=== PATIENT | female | born 1940 | race Caucasian/White ===

== ENCOUNTER 2016-05-23 13:43 | Outpatient (CLI) ==
[2016-02-14 15:43] VITALS: BMI 34.4
--- NOTE | 2016-05-24 07:21 | MAMMO ---
EXAM: Digital screening mammogram HISTORY: Screening mammogram COMPARISON: Mammogram 04/27/2015 and 04/20/2014 FINDINGS: Bilateral CC and MLO views of the breasts were performed digitally and demonstrate scatte red fibroglandular breast density (25 - 50%). There is a new 0.6 cm in diameter asymmetric nodule in the most posterior portion of the right MLO view. This is not identified on the right CC view. Thi s was not seen on prior evaluation although today's exam appears to include more posterior soft tiss ue than on prior studies. The left breast is unremarkable. IMPRESSION: Asymmetric nodular density in the most posterior part of the right MLO view. RECOMMENDATION: Diagnostic right breast mammogram and ultrasound BIRADS category 0: Needs further evaluation
== END 2016-05-23 13:44 | disposition home or self-care (01) ==
LOC: RAD 13:43
PROVIDERS: ATTEND Internal Medicine
DX: Z12.31 Encounter for screening mammogram for malignant neoplasm of breast (principal)

== ENCOUNTER 2016-06-02 09:02 | Outpatient (CLI) ==
[2016-02-14 15:43] VITALS: BMI 34.4
--- NOTE | 2016-06-02 09:52 | MAMMO ---
EXAM: Right digital diagnostic mammogram. History: Right breast nodule. Comparison: Bilateral mammogram 05/23/2016 Findings: Right breast density is fatty. Additional views of the right breast confirm the presence of a small round nodule in the right axillary tail. There are no suspicious microcalcifications. Impression: Indeterminate small right axillary breast nodule. Recommend further evaluation with nate cazares. BIRADS 0
--- NOTE | 2016-06-02 10:06 | US ---
EXAM: Right breast ultrasound. History: Right breast nodule. Comparison: Right digital diagnostic mammogram 06/02/2016 Technique: Multiple sonographic images through the right breast and right axilla were obtained. [place] duplex Doppler was used to interrogate vascular flow. Findings: Benign 1.0 cm x 0.4 cm x 1.1 cm lymph node within the right axilla demonstrating fatty hi lum. This probably correlates with the mammographic abnormality. No suspicious masses or fluid col lections. Impression: Benign right axillary lymph node. Recommend return to routine screening mammography gladis villeda. BIRADS 2
== END 2016-06-02 09:03 | disposition home or self-care (01) ==
LOC: RAD 09:02
PROVIDERS: ATTEND Internal Medicine
DX: R92.8 Other abnormal and inconclusive findings on diagnostic imaging of breast (principal); N63 Unspecified lump in breast

== ENCOUNTER 2016-09-05 08:37 | Day surgery (SDC) ==
[2016-02-14 15:43] VITALS: BMI 34.4
[2016-09-05] MEDS ORDERED: LIDOCAINE 1% 20 ML MDV ID ONE (08:55)
[2016-09-05] MEDS ORDERED: LIDOCAINE 1% 20 ML MDV ONE (08:55)
[2016-09-05] MEDS ORDERED: DIPRIVAN 20 ML VIAL IVP ONE (10:17)
[2016-09-05] MEDS ORDERED: VERSED ONE (10:17)
[2016-09-05 11:14] VITALS: TEMP 98
[2016-09-05 11:27] VITALS: BP 140/74
--- NOTE | 2016-09-06 11:24 | OP ---
INDICATIONS FOR PROCEDURE: 75-year-old female presents for colonoscopy. She has a past history of adenomatous polyps. Incidentally has some constipation. MEDICATIONS: SEE ANESTHESIA NOTES. PROCEDURE: COLONOSCOPY. REPORT: The risks, benefits, alternatives and limitations were discussed in detail with the patient. Informed consent was obtained. After adequate sedation was achieved, a digital rectal exam revealed good tone, no masses. The colonoscope was introduced into the rectum and advanced under direct visual guidance to the cecum. The cecum was identified by the appendiceal orifice and IC valve. I then slowly withdrew the scope in circumferential manner examining the mucosa quite carefully. I looked on the proximal and distal side of folds and flexures as best as possible. The colonic mucosa is unremarkable its entire length other than willett diverticulosis. No other abnormalities were noted including on retroflex view of the anal canal. The prep was good. The withdrawal time was 16 minutes and 28 seconds. The patient tolerated the procedure well with stable vital signs and pulse oximetry throughout. IMPRESSION: 1. Pandiverticulosis. RECOMMENDATIONS: 1. High fiber diet. 2. Office visit as needed. 3. Future colon exams on an as needed basis. CC: DR. SHAILESH DE LUNA
== END 2016-09-05 11:36 | disposition home or self-care (01) ==
LOC: SURG 08:37
PROVIDERS: ATTEND Internal Medicine Gastroenterology
DX: Z09 Encounter for follow-up examination after completed treatment for conditions other than malignant neoplasm (principal); Z86.010 Personal history of colon polyps; K57.30 Diverticulosis of large intestine without perforation or abscess without bleeding; K59.00 Constipation, unspecified
CPT/HCPCS: 00810; G0105

== ENCOUNTER 2017-04-29 09:55 | Emergency (ER) ==
[2017-04-29 09:59] VITALS: BP 160/71; TEMP 98.5; BMI 36.6
[2017-04-29 10:17] LABS: BILIRUBIN,URINE 3+ (NEGATIVE); KETONES,URINE 1+ (NEGATIVE); LEUKOCYTE ESTERASE ,URINE 3+ (NEGATIVE); NITRITE,URINE Negative (NEGATIVE); PH,URINE 5.5 (5-9); PROTEIN,URINE 3+ (NEGATIVE); URINE, BLOOD 3+ (NEGATIVE)
[2017-04-29 10:24] LABS: ADD URINE MICROSCOPIC YES
[2017-04-29 10:36] LABS: BACTERIA,URINE 1+ (NOT PRESENT)
--- NOTE | 2017-04-29 10:59 | ED.PDOC ---
General ED Provider: Dr. MURPHY GUERRA Chief Complaint: Urinary Problem Stated Complaint: Pateint states she started having buring on urination yesterday worse today. Also noted some blood with some clots. Denies any fever. Time Seen by Physician: 10:57 Mode of Arrival: Walk-In Information Source: Patient Primary Care Provider: GAYATRI CASH Nursing and Triage Documentation Reviewed and Agree: Yes Review of Systems - Review Of Systems Constitutional: Reports: No symptoms Eyes: Reports: No symptoms Ears, Nose, Mouth, Throat: Reports: No symptoms Respiratory: Reports: No symptoms Cardiac: Reports: No symptoms GI: Reports: No symptoms : Reports: Burning, Dysuria, Hematuria Musculoskeletal: Reports: Back pain Skin: Reports: No symptoms Neurological: Reports: No symptoms Endocrine: Reports: No symptoms Hematologic/Lymphatic: Reports: No symptoms All Other Systems: Reviewed and Negative Past Medical History - Past Medical History Endocrine: Reports: None Cardiovascular: Reports: CAD, Hypertension Respiratory: Reports: None Hematological: Reports: None Gastrointestinal: Reports: GERD (old record), Diverticulitis, Other (IBS) Genitourinary: Reports: None Neuro/Psych: Reports: Anxiety (old record) Musculoskeletal: Reports: None Cancer: Reports: None Last Menstrual Period: n/a - Surgical History General Surgical History: Reports: Cholecystectomy, Tonsillectomy - Family History Family History: Reports: Other (noone else ill), Unknown - Social History Smoking Status: Never smoker Hx Substance Use: No Alcohol Screening: None Physical Exam - Physical Exam Appearance: Ill-appearing Ill-appearing: Mild Pain Distress: Moderate Neck: Supple Respiratory: Airway patent, Breath sounds clear, Breath sounds equal, Respirations nonlabored Cardiovascular: RRR, Pulses normal, No rub, No murmur GI/: Soft, Tender (mild CVA tenderness on the right ) Musculoskeletal: Normal strength Skin: Warm, Dry, Normal color Neurological: Sensation intact, Motor intact, Reflexes intact, Cranial nerves intact, Alert, Oriented Psychiatric: Anxious Critical Care Note - Critical Care Note Total Time (mins): 0 Course - Course Orders, Labs, Meds: Lab Review 04/29/17 10:10 Urine Color Red Urine Clarity Cloudy Urine pH 5.5 Ur Specific [place] 1.020 Urine Protein 3+ Urine Glucose (UA) Negative Urine Ketones 1+ Urine Blood 3+ Urine Nitrite Negative Urine Bilirubin 3+ Urine Urobilinogen 2.0 Ur Leukocyte Esterase 3+ Urine Microscopic RBC Tntc Urine Microscopic WBC 2-5 Ur Squamous Epith Cells 2-5 Urine Bacteria 1+ Orders Category Date Time Status UA [URINALYSIS C & S IF INDICATED] Stat LAB 04/29/17 10:10 Completed URINE CULTURE Stat LAB 04/29/17 10:10 Received Vital Signs: Temp Pulse Resp BP Pulse Ox 04/29/17 09:57 98.5 F 69 20 160/71 H 97 Departure - Departure Time of Disposition: 10:58 Disposition: HOME SELF-CARE Discharge Problem: Urinary tract infectious disease Instructions: Urinary Tract Infection in Women (ED) Condition: Stable Pt referred to PMD for follow-up: Yes Additional Instructions: Push fluids Take medications as prescribed Follow up with PCP in 3 days Prescriptions: Levofloxacin [Levaquin] 500 mg PO DAILY #7 tablet Phenazopyridine HCl [Pyridium] 100 mg PO TID PRN #10 tablet PRN Reason: Urinary Burning. Allergies/Adverse Reactions: Allergies morphine Adverse Reaction (Verified 04/29/17 09:59) Home Medications: Ambulatory Orders Aspirin [Aspirin EC] 81 mg PO DAILYWM 05/17/13 Bisoprolol Fumarate [Zebeta] 2.5 mg PO BEDTIME 05/17/13 Dicyclomine HCl [Bentyl] 10 mg PO QID PRN 05/17/13 Digoxin 125 mcg PO BEDTIME 05/17/13 Lisinopril [Zestril] 10 mg PO DAILY 05/17/13 Pantoprazole Sodium 40 mg PO QDAC 05/17/13 Ferrous Sulfate 65 mg PO BID 02/14/16 Calcium Carbonate [Calcium] 600 mg PO BID 09/05/16 Cholecalciferol (Vitamin D3) [Vitamin D3] 1,000 unit PO DAILY 09/05/16 Hydrocodone/Acetaminophen [[place] 10-325 Tablet] 1 tab PO TID PRN 09/05/16 Multivitamin 1 cap PO DAILY 09/05/16 Raloxifene HCl [Evista] 60 mg PO DAILY 09/05/16 Tizanidine HCl 4 mg PO BID PRN 09/05/16 Levofloxacin [Levaquin] 500 mg PO DAILY #7 tablet 04/29/17 Phenazopyridine HCl [Pyridium] 100 mg PO TID PRN #10 tablet 04/29/17 Disposition Discussed With: Patient, Family
== END 2017-04-29 11:03 | disposition home or self-care (01) ==
LOC: ED 09:55
DX: N39.0 Urinary tract infection, site not specified (principal)
CPT/HCPCS: 81001; 87086; 99283

== ENCOUNTER 2017-05-22 10:32 | Inpatient (IN) ==
[2017-05-22] MEDS ORDERED: TYLENOL PO PRN (11:41)
[2017-05-22] MEDS ORDERED: ATROPINE SULFATE PFS IVP PRN (11:41)
[2017-05-22] MEDS ORDERED: NITROSTAT SL PRN (11:41)
[2017-05-22] MEDS ORDERED: MORPHINE 4 MG/ML VIAL IVP PRN (11:41)
[2017-05-22] MEDS ORDERED: VISTARIL INJ IM PRN (11:41)
[2017-05-22] MEDS ORDERED: BENTYL PO PRN (11:50)
[2017-05-22] MEDS ORDERED: NORCO 10-325 PO PRN (11:50)
[2017-05-22] MEDS ORDERED: ZANAFLEX PO PRN (11:50)
[2017-05-22] MEDS ORDERED: TUSSIONEX PO PRN (11:53)
[2017-05-22] MEDS: XOPENEX 1.25 MG NEB SCH ×3 (12:41→23:22)
[2017-05-22] MEDS: DEXTROSE 5%-1/2NS IV SOLUTION 1,000 ML IV SCH (14:34)
[2017-05-22] MEDS: ROCEPHIN 1 GM in SODIUM CHLORIDE 50 ML IV SCH (14:34)
[2017-05-22] MEDS: SOLU-MEDROL 125 MG IVP SCH ×2 (14:35→20:27)
--- NOTE | 2017-05-22 16:15 | DI ---
EXAM: CHEST FRONTAL AND LATERAL VIEWS HISTORY: Acute bronchitis. COMPARISON: 05/17/2013 FINDINGS: Heart size remains within normal limits. Moderate atherosclerotic disease. Mild hyperinf lation. There are scattered calcifications suggesting old granulomatous disease. No acute infiltrate s are seen. No vascular congestion. There is no consolidation, visible pleural fluid or pneumothora x. Bones reveal no acute fracture. IMPRESSION: No acute cardiopulmonary process.
[2017-05-22] MEDS: FERROUS SULFATE PO SCH (20:26)
[2017-05-22] MEDS: CALCIUM 500 + VIT D 200 MG TABLET PO SCH (20:26)
[2017-05-22] MEDS: LANOXIN PO SCH (20:26)
[2017-05-22] MEDS: ZEBETA PO SCH (20:28)
[2017-05-22] MEDS ORDERED: FERROUS SULFATE 65 MG PO SCH (21:00)
[2017-05-22] MEDS ORDERED: NON-FORMULARY MEDICATION (Calcium Carbonate [Calcium] 600 MG) PO SCH (21:00)
[2017-05-23] MEDS: XOPENEX 1.25 MG NEB SCH (04:04)
[2017-05-23] MEDS: DEXTROSE 5%-1/2NS IV SOLUTION 1,000 ML IV SCH (05:19)
[2017-05-23] MEDS: SOLU-MEDROL 125 MG IVP SCH ×3 (05:36→20:50)
[2017-05-23] MEDS: PROTONIX PO SCH (05:36)
[2017-05-23] MEDS ORDERED: ASPIRIN EC PO SCH (08:00)
[2017-05-23] MEDS: ZESTRIL PO SCH (08:23)
[2017-05-23] MEDS: MULTIVITAMIN TABLET PO SCH (08:23)
[2017-05-23] MEDS: ROCEPHIN 1 GM in SODIUM CHLORIDE 50 ML IV SCH (08:23)
[2017-05-23] MEDS: CALCIUM 500 + VIT D 200 MG TABLET PO SCH ×2 (08:23→20:51)
[2017-05-23] MEDS: ASPIRIN EC PO SCH (08:23)
[2017-05-23] MEDS: VITAMIN D PO SCH (08:23)
[2017-05-23] MEDS: FERROUS SULFATE PO SCH ×2 (08:24→20:51)
[2017-05-23] MEDS: RALOXIFENE HCL 60 MG PO SCH (08:24)
[2017-05-23] MEDS ORDERED: NON-FORMULARY MEDICATION (Multivitamin 1 CAP) PO SCH (09:00)
[2017-05-23] MEDS: MICRO-K CAP PO SCH (09:23)
[2017-05-23] MEDS: PROAIR HFA IH SCH ×2 (09:23→20:49)
--- NOTE | 2017-05-23 10:01 | PCM.PROG ---
Attending Provider: ATTENDING PROVIDER: Dr. GAYATRI CASH DATE OF SERVICE: 05/23/17 SUBJECTIVE: This 76 year old WHITE/ F was hospitalized 05/22/17. The patient is hospitalized with acute bronchitis, dehydration and pleuritic pain. The patient's condition has improved. She is feeling a lot better, coughing less. No CHF symptoms. REVIEW OF SYSTEMS: CONSTITUTIONAL: Weakness. No night sweats. No fever or chills. HEENT: Eyes: No visual changes. No eye pain. No eye discharge. ENT: No runny nose. No epistaxis. No sinus pain. No odynophagia. No congestion. RESPIRATORY: No cough, no congestion. No hemoptysis. No shortness of breath. CARDIOVASCULAR: No angina symptoms. No CHF symptoms. No atypical chest pain for CAD. No palpitations. No orthopnea.. GASTROINTESTINAL: No abdominal pain. No nausea or vomiting. No diarrhea or constipation. No hematemesis. No hematochezia. GENITOURINARY: No urgency. No frequency. No dysuria. No hematuria. No obstructive symptoms. No discharge. No pain. No significant abnormal bleeding. MUSCULOSKELETAL: No musculoskeletal pain; no joint swelling. NEUROLOGICAL: Awake, alert, oriented to time, place and person. No headache. No neck pain. No syncope. No seizures. No dizziness. PSYCHIATRIC: Not anxious. No depression. No suicidal thoughts. No homicidal thoughts. SKIN: No rash. No lesions. No wounds. ENDOCRINE: No unexplained weight loss. No weight gain. HEMATOLOGIC/LYMPHATIC: No anemia. No purpura. No petechiae. No prolonged or excessive bleeding. No palpable lymph nodes. PHYSICAL EXAMINATION: GENERAL: The patient is awake, alert and oriented, lying/sitting in bed in no distress. VITAL SIGNS: Temperature 98 F, Pulse 68, Respiratory Rate 16, BP 112/60, Pulse Ox 96% HEENT: Head normocephalic, atraumatic. Eyes: Extraocular muscles are intact. Pupils are equal, round and reactive to light and accommodation. Ears: No lesions. Nose appeared normal. Throat: No exudate or erythema. NECK: Supple. No JVD, no carotid bruit. No lymphadenopathy or thyromegaly. LUNGS: Decreased breath sounds. Clear to auscultation. Percussion note normal. Chest symmetrical. HEART: S1, S2, no S3. No murmurs. No cyanosis or clubbing. No ascites. Pulses: Dorsalis pedis and posterior tibial pulses +1 to +2 both sides. ABDOMEN: Soft. Non-tender. Bowel sounds active. No CVA tenderness. No mass felt. EXTREMITIES: No edema. Full range of motion of all extremities, equal. NEUROLOGIC: No focal deficit. Cranial nerves II through XII are grossly intact. No headache, no double vision or headache. SKIN: Not dry. Intact. Turgor-normal. LYMPHATIC: No palpable lymph nodes/no lymphedema. MUSCULOSKELETAL: Normal joints with no swelling. Muscle tone is normal. LAB REVIEW: 05/23/17 04:30 05/23/17 04:30 05/23/17 04:30: Sodium 140, Potassium 3.3 L, Chloride 108 H, Carbon Dioxide 21 L , Anion Gap 14.3, BUN 21 H, Creatinine 0.92, Estimated GFR (MDRD) 59.00, BUN/ Creatinine Ratio 22.82, Glucose 205 H D, Calcium 8.8, Total Bilirubin 0.3, AST 17, ALT 14, Alkaline Phosphatase 59, Total Protein 7.3, Albumin 3.3 L, Globulin 4.0, Albumin/Globulin Ratio 0.83 05/23/17 04:30: WBC 17.57 H, RBC 4.60, Hgb 12.5, Hct 39.1, MCV 85.0, MCH 27.2, MCHC 32.0, RDW Coeff of Rut 15.1 H, Plt Count 263, Immature Gran % (Auto) 1.1, Neut % (Auto) 78.3, Lymph % (Auto) 18.5, [place] % (Auto) 1.9, Eos % (Auto) 0.0, Baso % (Auto) 0.2, Immature Gran # (Auto) 0.2, Neut # 13.8 H, Lymph # 3.3, [place] # 0.3 L, Eos # 0.0, Baso # 0.0 05/22/17 19:50: Total Creatine Kinase 55, Troponin I 0.0160 05/22/17 12:00: Sodium 140, Potassium 4.0, Chloride 107, Carbon Dioxide 27, Anion Gap 10.0, BUN 20 H, Creatinine 0.85, Estimated GFR (MDRD) 65.00, BUN/ Creatinine Ratio 23.52, Glucose 112, Calcium 8.7, Total Bilirubin 0.4, AST 19, ALT 18, Alkaline Phosphatase 56, Total Creatine Kinase 55, Troponin I 0.0150, Total Protein 7.2, Albumin 3.3 L, Globulin 3.9, Albumin/Globulin Ratio 0.85, Digoxin < 0.30 L 05/22/17 11:50: Urine Color Yellow, Urine Clarity Clear, Urine pH 5.5, Ur Specific [place] 1.015, Urine Protein Negative, Urine Glucose (UA) Negative, Urine Ketones Negative, Urine Blood Negative, Urine Nitrite Negative, Urine Bilirubin Negative, Urine Urobilinogen 0.2, Ur Leukocyte Esterase 1+, Urine Microscopic WBC 5-10, Ur Squamous Epith Cells 10-20, Urine Bacteria 1+ 05/22/17 11:50: Influenza A (Rapid) Negative by naat, Influenza B (Rapid) Negative by naat ASSESSMENT: Please see below. 1. ACUTE PNEUMONITIS/BRONCHITIS/PLEURITIC PAIN, CONDITION IMPROVING WITH NEBS TREATMENT, WHICH IS MAKING HER SICK PLAN: 1. Continue steroids and antibiotics 2. D/C Iv fluids 3. D/C Xopenex as she doesn't tolerate it well 4. ProAir HFA two puffs two to three times a day 5. K-Tab 10 mEq daily 6. D/C breathing treatment Plan and coordination of the patient's care discussed in the presence of Nut Picker and nurse. CONDITION: Stable SCRIBED BY: ZHANG OLEARY Custom [employer] Maker scribed while in presence of service performed by Dr. GAYATRI CASH on 05/23/17 ([id number])
[2017-05-23] MEDS: ZEBETA PO SCH (20:50)
[2017-05-23] MEDS: LANOXIN PO SCH (20:51)
[2017-05-24] MEDS: PROTONIX PO SCH (05:41)
[2017-05-24] MEDS: SOLU-MEDROL 125 MG IVP SCH (05:41)
[2017-05-24 05:44] VITALS: BP 103/58; TEMP 97.6
[2017-05-24] MEDS: PROAIR HFA IH SCH (08:33)
[2017-05-24] MEDS: FERROUS SULFATE PO SCH (08:34)
[2017-05-24] MEDS: ASPIRIN EC PO SCH (08:34)
[2017-05-24] MEDS: MICRO-K CAP PO SCH (08:34)
[2017-05-24] MEDS: CALCIUM 500 + VIT D 200 MG TABLET PO SCH (08:34)
[2017-05-24] MEDS: VITAMIN D PO SCH (08:34)
[2017-05-24] MEDS: MULTIVITAMIN TABLET PO SCH (08:34)
[2017-05-24] MEDS: ZESTRIL PO SCH (08:34)
[2017-05-24] MEDS: ROCEPHIN 1 GM in SODIUM CHLORIDE 50 ML IV SCH (08:35)
[2017-05-24] MEDS: DEXTROSE 5%-1/2NS IV SOLUTION 1,000 ML IV SCH ×2 (08:35→09:35)
[2017-05-24] MEDS: RALOXIFENE HCL 60 MG PO SCH (08:36)
--- NOTE | 2017-05-24 10:13 | PCM.PROG ---
Attending Provider: ATTENDING PROVIDER: Dr. GAYATRI MARIN This patient is seen with Suzan Pinedo, Nurse Practitioner. DATE OF SERVICE: 05/24/17 SUBJECTIVE: This 76 year old WHITE/ F was hospitalized 05/22/17. The patient is lying in bed, alert. She is ready to go home. The patient is feeling much better. REVIEW OF SYSTEMS: CONSTITUTIONAL: No night sweats. No fatigue, malaise, lethargy. No fever or chills. HEENT: Eyes: No visual changes. No eye pain. No eye discharge. ENT: No runny nose. No epistaxis. No sinus pain. No odynophagia. No congestion. RESPIRATORY: Cough and congestion. No hemoptysis. No shortness of breath. CARDIOVASCULAR: No angina symptoms. No CHF symptoms. No atypical chest pain for CAD. No palpitations. No orthopnea.. GASTROINTESTINAL: No abdominal pain. No nausea or vomiting. No diarrhea or constipation. No hematemesis. No hematochezia. GENITOURINARY: No urgency. No frequency. No dysuria. No hematuria. No obstructive symptoms. No discharge. No pain. No significant abnormal bleeding. MUSCULOSKELETAL: No musculoskeletal pain; no joint swelling. NEUROLOGICAL: Awake, alert, oriented to time, place and person. No headache. No neck pain. No syncope. No seizures. No dizziness. PSYCHIATRIC: Not anxious. No depression. No suicidal thoughts. No homicidal thoughts. SKIN: No rash. No lesions. No wounds. ENDOCRINE: No unexplained weight loss. No weight gain. HEMATOLOGIC/LYMPHATIC: No anemia. No purpura. No petechiae. No prolonged or excessive bleeding. No palpable lymph nodes. PHYSICAL EXAMINATION: GENERAL: The patient is awake, alert and oriented, lying in bed in no distress. VITAL SIGNS: Temperature 97.6 F, Pulse 81, Respiratory Rate 20, BP 103/58, Pulse Ox 94% HEENT: Head normocephalic, atraumatic. Eyes: Extraocular muscles are intact. Pupils are equal, round and reactive to light and accommodation. Ears: No lesions. Nose appeared normal. Throat: No exudate or erythema. NECK: Supple. No JVD, no carotid bruit. No lymphadenopathy or thyromegaly. LUNGS: Diminished breath sounds bilaterally. Percussion note normal. Chest symmetrical. HEART: S1, S2, no S3. No murmurs. No cyanosis or clubbing. No ascites. Pulses: Dorsalis pedis and posterior tibial pulses +1 to +2 both sides. ABDOMEN: Soft. Non-tender. Bowel sounds active. No CVA tenderness. No mass felt. EXTREMITIES: No edema. Full range of motion of all extremities, equal. NEUROLOGIC: No focal deficit. Cranial nerves II through XII are grossly intact. No headache, no double vision or headache. SKIN: Not dry. Intact. Turgor-normal. LYMPHATIC: No palpable lymph nodes/no lymphedema. MUSCULOSKELETAL: Normal joints with no swelling. Muscle tone is normal. LAB REVIEW: 05/24/17 05:00 05/24/17 05:00 05/24/17 05:00: Sodium 143, Potassium 3.9, Chloride 112 H, Carbon Dioxide 23, Anion Gap 11.9, BUN 22 H, Creatinine 0.92, Estimated GFR (MDRD) 59.00, BUN/ Creatinine Ratio 23.91, Glucose 145 H, Calcium 8.5, Total Bilirubin < 0.3, AST 23, ALT 16, Alkaline Phosphatase 48 L, Total Protein 6.3, Albumin 2.9 L, Globulin 3.4, Albumin/Globulin Ratio 0.85 05/24/17 05:00: WBC 24.51 H D, RBC 4.35, Hgb 12.1, Hct 37.1, MCV 85.3, MCH 27.8 , MCHC 32.6, RDW Coeff of Rut 15.5 H, Plt Count 259, Immature Gran % (Auto) 1.1 , Neut % (Auto) 85.2, Lymph % (Auto) 10.5, [place] % (Auto) 3.1, Eos % (Auto) 0.0, Baso % (Auto) 0.1, Immature Gran # (Auto) 0.3, Neut # 20.9 H, Lymph # 2.6, [place] # 0.8, Eos # 0.0, Baso # 0.0 ASSESSMENT: 1. ACUTE PNEUMONITIS/BRONCHITIS/PLEURITIC PAIN, CONDITION IMPROVING WITH NEBS TREATMENT, WHICH IS MAKING HER SICK PLAN: 1. Discharge home 2. Lu already has outpatient prescriptions 500 b.i.d. times 10 days. 3. Prednisone 10 mg b.i.d. times five days 4. Sebastian Clark one teaspoon p.r.n. Plan and coordination of the patient's care discussed in the presence of Estate Planning Counselor and nurse. CONDITION: Stable SCRIBED BY: ZHANG OLEARY Warp Preparer scribed while in presence of service performed by Dr. Marin/Suzan Pinedo APRN on 05/24/17 ([id number])
--- NOTE | 2017-05-24 10:24 | CM.DICTOOL ---
ADMISSION: 05/22/17 10:32 DISCHARGE: 05/24/17 DATE OF SERVICE: 05/24/17 FINAL DIAGNOSIS ACUTE BRONCHITIS DEHYDRATION HYPERTENSION GERD DYSLIPIDEMIA HEART MURMUR CARDIAC TACHYARRHYTHMIA OA - KNEES/HIPS LUMBAR RADICULOPATHY HEMORRHOIDS GENERALIZED ANXIETY DISORDER COLON/ENDO (DR. OKEEFE, 2012) MAMMOGRAM, 01/23 TONSILLECTOMY CHOLECYSTECTOMY, 1998 RIGHT ULNAR FRACTURE-REPAIR (DR. HOLDEN, 2013) NONSMOKER LAST VITALS Temp Pulse Resp BP Pulse Ox 97.6 F 81 20 103/58 L 94 L 05/24/17 05:43 05/24/17 05:43 05/24/17 05:43 05/24/17 05:43 05/24/17 05:43 ACTIVE HOME MEDICATIONS Acetaminophen/Hydrocodone Bitart ([place] 10-325) 1 tab PO TID PRN PRN Reason: pain Last Admin: 05/22/17 23:28 Dose: 1 tab Aspirin (Aspirin Ec) 81 mg PO DAILYWM [facility] Last Admin: 05/24/17 08:34 Dose: 81 mg Bisoprolol Fumarate (Zebeta) 2.5 mg PO BEDTIME [facility] Last Admin: 05/23/17 20:50 Dose: 2.5 mg Calcium/Vitamin D (Calcium 500 + Vit D 200 Mg Tablet) 1 each PO BID [facility] Last Admin: 05/24/17 08:34 Dose: 1 each Cholecalciferol (Vitamin D) 1,000 unit PO DAILY [facility] Last Admin: 05/24/17 08:34 Dose: 1,000 unit Dicyclomine HCl (Bentyl) 10 mg PO QID PRN PRN Reason: pain Digoxin (Lanoxin) 125 mcg PO BEDTIME [facility] Last Admin: 05/23/17 20:51 Dose: 125 mcg Ferrous Sulfate (Ferrous Sulfate) 324 mg PO BID [facility] Last Admin: 05/24/17 08:34 Dose: 324 mg Lisinopril (Zestril) 10 mg PO DAILY [facility] Last Admin: 05/24/17 08:34 Dose: 10 mg Multivitamins (Multivitamin Tablet) 1 tab PO DAILY [facility] Last Admin: 05/24/17 08:34 Dose: 1 tab Raloxifene Hcl [Evista] 60 mg PO DAILY [facility] Last Admin: 05/24/17 08:36 Dose: Not Given Pantoprazole Sodium (Protonix) 40 mg PO QDAC [facility] Last Admin: 05/24/17 05:41 Dose: 40 mg Tizanidine HCl (Zanaflex) 4 mg PO BID PRN PRN Reason: pain Last Admin: 05/22/17 23:33 Dose: 4 mg ALLERGIES morphine Adverse Reaction (Verified 04/29/17 09:59) NEW PRESCRIPTIONS: YOU SHOULD FILL THE PRESCRIPTIONS GIVEN JUST PRIOR TO YOUR HOSPITALIZATION AND TAKE DIRECTED: KEFLEX PREDNISONE TESSALON PERLES SMOKING: NONSMOKER DISEASE SPECIFIC EDUCATION: BRONCHITIS DEHYDRATION HOME MEDICATIONS NEW PRESCRIPTIONS FOLLOW UP EFFECTS OF ALF STEROID USE LAB REVIEW: 05/24/17 05:00 05/24/17 05:00 05/24/17 05:00: Sodium 143, Potassium 3.9, Chloride 112 H, Carbon Dioxide 23, Anion Gap 11.9, BUN 22 H, Creatinine 0.92, Estimated GFR (MDRD) 59.00, BUN/ Creatinine Ratio 23.91, Glucose 145 H, Calcium 8.5, Total Bilirubin < 0.3, AST 23, ALT 16, Alkaline Phosphatase 48 L, Total Protein 6.3, Albumin 2.9 L, Globulin 3.4, Albumin/Globulin Ratio 0.85 05/24/17 05:00: WBC 24.51 H D, RBC 4.35, Hgb 12.1, Hct 37.1, MCV 85.3, MCH 27.8 , MCHC 32.6, RDW Coeff of Rut 15.5 H, Plt Count 259, Immature Gran % (Auto) 1.1 , Neut % (Auto) 85.2, Lymph % (Auto) 10.5, [place] % (Auto) 3.1, Eos % (Auto) 0.0, Baso % (Auto) 0.1, Immature Gran # (Auto) 0.3, Neut # 20.9 H, Lymph # 2.6, [place] # 0.8, Eos # 0.0, Baso # 0.0 PLAN: DISCHARGE HOME TODAY RETURN TO SEE DR. CASH IN HIS OFFICE ON 05/31/17 AT 10:45 A.M. RESUME YOUR HOME MEDICATIONS PER LIST PROVIDED BY THE NURSING STAFF YOU SHOULD FILL THE PRESCRIPTIONS GIVEN JUST PRIOR TO YOUR HOSPITALIZATION AND TAKE DIRECTED: KEFLEX PREDNISONE TESSALON PERLES ACTIVITY GET PLENTY OF REST AT HOME. GRADUALLY INCREASE YOUR ACTIVITY LEVEL ACCORDING TO YOUR TOLERATION DIET HEALTHY HEART SUMMARY THE PATIENT IS ALERT AND ORIENTED X3. SHE CURRENTLY RESIDES AT HOME AND HAS BEEN INDEPENDENT WITH ADL'S. SHE REQUIRES NO DME, HOME HEALTH OR HOMEMAKING SERVICES. SHE DESIRES TO RETURN HOME AT DISCHARGE. HER SKIN TURGOR IS INTACT AND WITHOUT DECUBITUS ULCERS. HYDRATION AND NUTRITIONAL STATUS IS VERY GOOD. SHE HAS SHOWN CLINICAL IMPROVEMENT IN RESPONSE TO THE TREATMENT PROVIDED DURING THIS STAY. SHE IS DISCHARGED AFEBRILE. OTHER V/S ARE WELL WITHIN ACCEPTABLE RANGES. SHE IS AWARE AND AGREEABLE FOR TODAY'S DISCHARGE PLAN. CURRENT CODE STATUS: FULL CODE WILLIAMS MONTAÑO APRN GAYATRI CASH M.D.
--- NOTE | 2017-05-31 13:40 | PN ---
DATE OF SERVICE: 05/24/17 SUBJECTIVE: 76-year-old white female hospitalized with dehydration, acute bronchitis, pneumonitis. The patient's condition has steadily improved. She is up and about , afebrile. Appetite has improved. Strength has improved. PHYSICAL EXAMINATION: HEENT: Head normocephalic, atraumatic. Eyes: Extraocular muscles are intact. Pupils are equal, round and reactive to light and accommodation. Ears: No lesions. Nose appeared normal. Throat: No exudate or erythema. NECK: Supple. No JVD, no carotid bruit. No lymphadenopathy or thyromegaly. LUNGS: Good air entry with mild wheeze. Percussion note normal. Chest symmetrical. HEART: S1, S2, no S3. No murmurs. No cyanosis or clubbing. No ascites. Pulses: Dorsalis pedis and posterior tibial pulses +1 to +2 both sides. ABDOMEN: Soft. Nontender. Bowel sounds active. No CVA tenderness. No mass felt. EXTREMITIES: No edema. Full range of motion of all extremities, equal. NEUROLOGIC: No focal deficit. Cranial nerves II through XII are grossly intact. No headache, no double vision or headache. SKIN: Not dry. Intact. Turgor - normal. LYMPHATIC: No palpable lymph nodes/no lymphedema. MUSCULOSKELETAL: Normal joints with no swelling. Muscle tone is normal. PLAN: The patient is discharged home on antibiotics, Prednisone, Tussionex. CONDITION: Stable. The patient was seen and examined with the nurse practitioner. TIME SPENT: More than 30 minutes. Plan and coordination of the patient's care discussed in the presence of nurse. [place]
--- NOTE | 2017-05-31 13:41 | PN ---
CODING FOR BILLING 05/22/17 LEVEL 5 05/23/17 INTERMEDIATE 05/24/17 DISCHARGE MTDD
--- NOTE | 2017-06-18 11:15 | DS ---
DATE OF SERVICE: 05/24/17 FINAL DIAGNOSIS: 1. ACUTE BRONCHITIS 2. DEHYDRATION 3. HYPERTENSION 4. GERD 5. DYSLIPIDEMIA 6. HEART MURMUR 7. CARDIAC TACHYARRHYTHMIA 8. OSTEOARTHRITIS- KNEES/HIPS 9. LUMBAR RADICULOPATHY 10. HEMORRHOIDS 11. GENERALIZED ANXIETY DISORDER 12. COLONOSCOPY/ENDOSCOPY (DR. OKEEFE, 2011) 13. MAMMOGRAM 01/23 14. TONSILLECTOMY 15. CHOLECYSTECTOMY, 1998 16. RIGHT ULNAR FRACTURE/REPAIR (DR. HOLDEN, 2013) 17. NONSMOKER DISCHARGE INSTRUCTIONS: Followup appointment to return to see Dr. Marin in his office on 05/31/17 at 10: 45 a.m. MEDICATIONS AT DISCHARGE: Acetaminophen/Hydrocodone one tab p.o. t.i.d. p.r.n. Aspirin 81 mg p.o. daily with meal REGGIE Zebeta 2.5 mg p.o. bedtime REGGIE Calcium/Vitamin D one each p.o. b.i.d. REGGIE Cholecalciferol 1,000 unit p.o. daily REGGIE Dicyclomine 10 mg p.o. q.i.d. p.r.n. Lanoxin 125 mcg p.o. bedtime REGGIE Ferrous Sulfate 324 mg p.o. b.i.d. REGGIE Zestril 10 mg p.o. daily REGGIE Multivitamin one tab p.o. daily REGGIE Evista 60 mg p.o. daily REGGIE Protonix 40 mg p.o. q.d a.c. REGGIE Zanaflex 4 mg p.o. b.i.d. p.r.n. NEW PRESCRIPTIONS: Keflex Prednisone Tessalon Perles DIET INSTRUCTIONS: Healthy Heart ACTIVITY: Get plenty of rest at home. Gradually increase your activity level according to your toleration. SMOKING: Nonsmoker DISEASE SPECIFIC EDUCATION: Bronchitis Dehydration Home medications New prescriptions Follow up Effects of usp steroid use HOSPITAL COURSE: This is a 76-year-old white female who was a direct admit from our office on the . Her was already in the hospital with bronchitis and shortness of breath. She had been experiencing cough and congestion for the past week. She had been feeling very weak, had low grade fever. She had decreased urine output, low blood pressure in the office at 90/50. Reluctantly she agreed to being admitted to the hospital. Chest x-ray revealed changes associated with bronchitis. Her kidney function was elevated showing mild dehydration. She was placed on IV fluids D5 1/2 NS at 75 cc/hr as well as Rocephin 1 gm IV daily. She was negative for the flu. Shortly after 24 hours, her kidney function significantly improved. Her BUN is slightly elevated today at 22. This is an improvement from admission which was in the 30's. Creatinine is normal at 0.92. After IV fluids, her blood pressure improved to still on the low side at 103/58 today. Today, she is finally feeling quite a bit better. She is not short of breath. She is no longer wheezing. She was wheezing on admission. She was placed on Solu-Medrol at 125 mg IV q.8hr along with Zithromax 500 mg p.o. daily for three days. She has responded remarkably well to the Solu-Medrol. Again, she is no longer wheezing as she was on admission. Digoxin level was checked on admission and was within normal limits. She has been doing Xopenex neb treatments here and those have helped her breathing. She will be given a prescription for Xopenex. She has a nebulizer machine at home. She is to continue these breathing treatments at least three times a day until her cough resolves. The Tussionex allows her to suppress the cough so she can rest at night. Will discharge her home with 4 ozs of Tussionex to take p.o. b.i.d. as needed. She will also be discharged home on Keflex 500 mg t.i.d. for the next week and Prednisone 10 mg b.i.d. for the next 5 days. Her white count is elevated today though this is likely due to IV steroids, is 24,000. Her hemoglobin 12.1, hematocrit 37.1, platelets 259. Sodium 143, potassium 3.9, BUN 22, creatinine 0.92. For the past 24 hours, she has been walking around her room with minimal shortness of breath with exertion. She has eaten 75 to 100% of her meals. She states her breathing is significantly better. She would like to go home today. Her vital signs are stable. Temperature 97.6, heart rate 81, respirations 20, BP 103/58, pulse ox 94%. I will see her and her as hospital followup both next week. TIME SPENT: More than 60 minutes. [place]
== END 2017-05-24 12:35 | disposition home or self-care (01) | DRG 203 ==
LOC: MEDSURG B 10:32
PROVIDERS: ADMIT Internal Medicine; ATTEND Internal Medicine
DX: J20.9 Acute bronchitis, unspecified (principal); R06.2 Wheezing; E86.0 Dehydration; I10 Essential (primary) hypertension; K21.9 Gastro-esophageal reflux disease without esophagitis; E78.5 Hyperlipidemia, unspecified; R01.1 Cardiac murmur, unspecified; R00.0 Tachycardia, unspecified; M17.0 Bilateral primary osteoarthritis of knee; M16.0 Bilateral primary osteoarthritis of hip; M54.16 Radiculopathy, lumbar region; K64.9 Unspecified hemorrhoids; F41.1 Generalized anxiety disorder; Z79.82 Long term (current) use of aspirin; Z79.899 Other long term (current) drug therapy
CPT/HCPCS: 36415; 80053; 80162; 81001; 82550; 84484; 85025; 87070; 87086; 87502; 93005; 93010; 94640

== ENCOUNTER 2017-06-11 12:56 | Outpatient (CLI) | END 2017-06-11 12:57 | disposition home or self-care (01) | LOC: RAD 12:56 | PROVIDERS: ATTEND Internal Medicine | DX: Z12.31 Encounter for screening mammogram for malignant neoplasm of breast (principal) | CPT/HCPCS: 77067 ==

== ENCOUNTER 2017-07-20 11:08 | Outpatient (CLI) ==
[2017-07-20 11:23] VITALS: BP 179/79; TEMP 98.4
[2017-07-20] MEDS ORDERED: PROLIA SUBCUT STA (11:23)
== END 2017-07-20 11:09 | disposition home or self-care (01) ==
LOC: OPMED 11:08
PROVIDERS: ATTEND Nurse Practitioner Family
DX: M81.0 Age-related osteoporosis without current pathological fracture (principal)
CPT/HCPCS: 96372

== ENCOUNTER 2017-12-06 06:50 | Outpatient (CLI) ==
--- NOTE | 2017-12-06 08:07 | ECHO2D ---
Date of Exam: 12/06/17 Ordering Physician: DR. GAYATRI CASH Room #: OP Reason for Echo: SOB, HTN, LVH M-Mode Normal Adult Results LV Dimensions Normal Adult Results AoV Opening excursions >1.6 >1.6 LVEDD-base- 3.5-5.8 4.4 Ao root dimensions 2.0-3.7 3.2 LVESD-base- 3.1-4.6 L. Atrium dimensions 1.9-3.8 4.0 Post. Wall thickness 0.8-1.1 1.1 IV septum (thickness) 0.7-1.2 1.0 Post. Wall excursion 0.72-1.3 NORMAL Septal motion NORMAL Systolic motion R. Ventricular cavity 1.5-2.0 NORMAL LVEF 60% 50% Paradoxical septal wall motion NORMAL 2-D : 2-D M Mode Echocardiogram was performed using apical four chamber and left parasternal long and short axis views. Mitral, tricuspid and aortic valves appear to be normal. Contractility of the left ventricle seems to be normal, so is the cavity size. Left atrial cavity size and aortic root appear to be normal. There is no pericardial effusion. There is no thrombus noted in the left ventricular or left aortic cavity. No mitral valve prolapse noted. M-MODE: MV: NORMAL AV: NORMAL TV: NORMAL PV: CHAMBER SIZE: NORMAL WALL MOTION: NORMAL PERICARDIUM: NORMAL INTERPRETATION: 1. NORMAL 2 "D" "M" MODE ECHO MTDD
== END 2017-12-06 06:51 | disposition home or self-care (01) ==
LOC: CAR 06:50
PROVIDERS: ATTEND Internal Medicine
DX: R06.02 Shortness of breath (principal); I10 Essential (primary) hypertension; I51.7 Cardiomegaly

== ENCOUNTER 2017-12-07 06:52 | Outpatient (CLI) | payer OTHER ==
--- NOTE | 2017-12-07 10:41 | ECHOSTRESS ---
Date of Exam: 12/07/17 Ordering Physician: DR. GAYATRI CASH Reason for Echo: HTN, SOB, LVH, STRESS TEST--POSITIVE FOR ISCHEMIA M-Mode Normal Adult Results LV Dimensions Normal Adult Results AoV Opening excursions >1.6 LVEDD-base- 3.5-5.8 Ao root dimensions 2.0-3.7 LVESD-base- 3.1-4.6 L. Atrium dimensions 1.9-3.8 Post. Wall thickness 0.8-1.1 IV septum (thickness) 0.7-1.2 Post. Wall excursion 0.72-1.3 Septal motion Systolic motion R. Ventricular cavity 1.5-2.0 LVEF 60% Paradoxical septal wall motion 2-D: NORMAL LEFT VENTRICULAR CONTRACTILITY--RESTING AND POST EXERCISE M-MODE: MV: AV: TV: PV: CHAMBER SIZE: WALL MOTION: NORMAL LEFT VENTRICULAR CONTRACTILITY--RESTING AND POST EXERCISE PERICARDIUM: INTERPRETATION: 1. NORMAL LEFT VENTRICULAR CONTRACTILITY--RESTING AND POST EXERCISE MTDD
--- NOTE | 2017-12-07 10:48 | STRESSMOD ---
Date of Test: 12/07/17 Ordering Physician: DR. GAYATRI CASH Occupation:RETIRED Reason for Exam: SOB, HTN, LVH Height: 62" Weight: 196 LBS Current Medications: ASA, ZEBETA, BENTYL, DIGOXIN, IRON, NORCO, ZESTRIL, TIZANIDINE, PROLIA SHOTS Resting EKG: SINUS RHYTHM/ NO ACUTE CHANGES Target Heart Rate: 119/141 S-T SEGMENT STAGE MPH/GRADE HEART RATE BPM BLOOD PRESSURE mmhg RHYTHM +/- ELEVATION DEPRESSION SYMPTOMS,COMMENTS At Rest 60 146/70 SR X NONE 1 1.7/0% 108 130/80 SR X NONE 2 1.7/5% 3 1.7/10% 4 2.5/12% 5 3.4/14% Immediately After 123 SR X SHORT OF BREATH Minutes Post Exercise 5:00 80 142/80 SR X NO COMMENTS Minutes Post Exercise DURATION OF EXERCISE: 4:51 MAXIMUM HEART RATE REACHED: 123 BPM REASON FOR TERMINATION: SHORT OF BREATH 95% OXYGEN SATURATION WITH EXERCISE ON ROOM AIR METS 3.6 INTERPRETATION: 1. TEST POSITIVE FOR ISCHEMIA 2. FEW PVC'S WITH EXERCISE 3. NO CHEST PAIN OR DISCOMFORT 4. NORMAL BLOOD PRESSURE RESPONSE NORMAL LEFT VENTRICULAR CONTRACTILITY--RESTING AND POST EXERCISE PATIENT SCHEDULED FOR A STRESS SESTAMIBI MTDD
== END 2017-12-07 06:53 | disposition home or self-care (01) ==
LOC: CAR 06:52
PROVIDERS: ATTEND Internal Medicine
DX: R06.02 Shortness of breath (principal); I51.7 Cardiomegaly; I10 Essential (primary) hypertension
CPT/HCPCS: 93017; 93018

== ENCOUNTER 2017-12-14 06:54 | Outpatient (CLI) ==
--- NOTE | 2017-12-14 09:49 | NM ---
Cardiac Stress Test HISTORY: Shortness of breath. Hypertension. COMPARISON: None of this type. TECHNIQUE: Resting: The patient was injected with 11.5 mCi of 99m technetium Sestamibi (Cardiolite) intravenous ly after which a "resting" SPECT study of the heart was performed. Stress: The patient was stressed using a Jeremias protocol and at the appropriate time injected with 32 mCi of 99m technetium Sestamibi (Cardiolite) after which a "stress" SPECT study of the heart was per formed. Gated images of the heart were also obtained to assess wall motion and calculate ejection fra ction. For details of the stress protocol employed, reference is made to the separate report of the performing physician. FINDINGS: The stress perfusion images demonstrate decreased activity in the septum which improves at rest. The contour of the left ventricle is distorted on the stress images for unknown reason limitin g interpretation. There appears to be a smaller region of ischemia in the anterolateral wall. In add ition, there is prominent underlying bowel activity on the resting images which may influence results . The left ventricular ejection fraction (LVEF) is 80 %. IMPRESSION: 1. Left ventricular myocardial perfusion demonstrates evidence of ischemia in the septum with a susp ected smaller region of ischemia in the anterolateral wall. The latter finding is caveated by the di storted appearance of the left ventricle in this area on the stress images. 2. The left ventricular ejection fraction (LVEF) is 80 %. .
--- NOTE | 2017-12-17 11:06 | DOBSTECHST ---
Ordering Physician: DR. GAYATRI CASH Date of Test: 12/14/17 Reason for Examination: SOB, HTN, LVH, POSITIVE STRESS TEST Height: 62" Weight: 196 LBS Current Medications: ASA, ZEBETA, BENTYL, DIGOXIN, IRON, NORCO, ZESTRIL, TIZANIDINE, PROLIA Resting EKG: SINUS RHYTHM/ NO ACUTE CHANGES Target Heart Rate: 119/141 S-T Segment Stage Time HR BPM BP mmhg Rhythm +/- Elevation Depression Comments/ Symptoms Control Sitting [] [] [] [] Dobutamine 250mg/D5W [] [] [] [] [] 5cmg/KG/mn [] [] [] [] [] 10cmg/KG/mn 15cmg/KG/mn 20cmg/KG/mn 25cmg/KG/mn 30cmg/KG/mn 35cmg/KG/mn 40cmg/KG/mn Time: [] HR B/P Time: [] HR B/P Time: [] HR B/P Recovery [] [] Recovery [] [] Recovery [] [] Total Time: [] Duration of Exercise: [] Interpretation: 1. [] 2. [] 3. [] 4. [] MTDD
--- NOTE | 2017-12-17 11:31 | STECHESEMD ---
Date of Test: 12/14/17 Ordering Physician: DR. GAYATRI CASH Occupation: RETIRED Reason for Exam: SOB, HTN, LVH, POSITIVE STRESS TEST Height: 62" Weight: 196 LBS Current Medications: ASA, ZEBETA, BENTYL, DIGOXIN, IRON, NORCO, ZESTRIL, TIZANIDINE, PROLIA Resting EKG: SINUS RHYTHM/ NO ACUTE CHANGES Target Heart Rate: 119/141 S-T SEGMENT STAGE MPH/GRADE HEART RATE BPM BLOOD PRESSURE mmhg RHYTHM +/- ELEVATION DEPRESSION SYMPTOMS,COMMENTS At Rest 52 150/72 SR X NONE 1 1.7/0% 107 162/66 SR X NONE 2 1.7/5% 3 1.7/10% 4 2.5/12% 5 3.4/14% Immediately after 130 170/60 SR X TIRED Minutes Post Exercise 5:00 62 140/76 SR X NO COMMENTS Minutes Post Exercise DURATION OF EXERCISE: 5:30 MAXIMUM HEART RATE REACHED: 130 REASON FOR TERMINATION: TIRED 93% OXYGEN SATURATION WITH EXERCISE ON ROOM AIR INTERPRETATION: 1. POSITIVE FOR ISCHEMIC ST-T WAVE 2. NO CHEST PAIN OR DISCOMFORT 3. NO ARRHYTHMIAS 4. BLOOD PRESSURE RESPONSE: NORMAL 5. SESTAMIBI TO FOLLOW NORMAL LEFT VENTRICULAR CONTRACTILITY--RESTING AND POST EXERCISE MTDD
== END 2017-12-14 06:55 | disposition home or self-care (01) ==
LOC: CAR 06:54
PROVIDERS: ATTEND Internal Medicine
DX: R06.02 Shortness of breath (principal); I10 Essential (primary) hypertension; I51.7 Cardiomegaly; R94.39 Abnormal result of other cardiovascular function study

== ENCOUNTER 2018-01-22 07:54 | Outpatient (CLI) ==
[2018-01-22] MEDS ORDERED: PROLIA SUBCUT STA (10:26)
[2018-01-22 10:29] VITALS: BP 140/61; TEMP 97.6
--- NOTE | 2018-01-22 12:16 | CT ---
EXAM: CTA of the neck without and with IV contrast HISTORY: Abnormal carotid ultrasound COMPARISON: 01/17/2018 ultrasound TECHNIQUE: CTA of the neck without and with IV contrast. Sagittal, coronal and 3-D reformats were ob tained. FINDINGS: Right side: The proximal CCA is tortuous. There is mild CCA bifurcation calcified plaque without sign ificant stenosis. The ECA is normal in course and caliber. The ICA is tortuous. There is minimal p roximal ICA calcified plaque without significant stenosis. The vertebral artery is normal in course and caliber. Focal right M1 MCA calcified plaque is seen with greater than 50% stenosis. Left side: Calcified plaque is seen at the CCA bifurcation without significant stenosis. The ECA is normal in course and caliber. There is proximal ICA calcified plaque without significant stenosis. The ICA is tortuous. The vertebral artery is normal in course and caliber. Nonvascular findings: There is moderate C5-6 degenerative disc disease. IMPRESSION: Multifocal atherosclerotic plaque, most prominent at the left CCA bifurcation and proximal ICA, witho ut significant stenosis. Focal calcified plaque of the M1 segment of the right middle cerebral artery with greater 50% stenosi s.
== END 2018-01-22 07:55 | disposition home or self-care (01) ==
LOC: OPMED 07:54
PROVIDERS: ATTEND Internal Medicine
DX: R93.1 Abnormal findings on diagnostic imaging of heart and coronary circulation (principal); M81.0 Age-related osteoporosis without current pathological fracture
CPT/HCPCS: 36415; 82565; 96372

== ENCOUNTER 2018-03-19 10:18 | Day surgery (SDC) | payer OTHER ==
[2018-03-19] MEDS ORDERED: LIDOCAINE 1% 20 ML MDV ID STA (10:31)
[2018-03-19] MEDS ORDERED: VERSED ONE (10:53)
[2018-03-19] MEDS ORDERED: DIPRIVAN 20 ML VIAL IVP ONE (10:53)
[2018-03-19] MEDS ORDERED: LIDOCAINE HCL 2% LUER-JET ONE (10:53)
--- NOTE | 2018-03-20 12:54 | OP ---
INDICATIONS FOR PROCEDURE: 77-year-old female presents complaining of right flank pain. She states that it starts in her back and radiates around to the right flank. She has a remote history of peptic ulcer disease. She is scheduled for endoscopy. MEDICATIONS: SEE ANESTHESIA NOTES. PROCEDURE: 1. ENDOSCOPY. REPORT: The risks, benefits, alternatives and limitations were discussed in detail with the patient. Informed consent was obtained. After adequate sedation was achieved, the video endoscope was introduced in the posterior pharynx and esophagus under direct vision and easily advanced down to the second portion of the duodenum. I then slowly withdrew. The duodenal mucosa appeared unremarkable as did the duodenal bulb. The antrum and body were relatively unremarkable. The scope was retroflexed to look at the cardia and fundus which was unremarkable. The scope was anteflexed and withdrawn back through the esophagus which was unremarkable. The patient tolerated the procedure well with stable vital signs and pulse oximetry throughout. IMPRESSION: 1. NORMAL ENDOSCOPY EXAM. RECOMMENDATIONS: 1. No further GI evaluation. 2. She will continue to followup with her primary care for evaluation of possible musculoskeletal causes of this right flank pain, et cetera. 3. I will see her back in the office as needed. CC: DR. SHAILESH DE LUNA
[2018-03-21 14:01] VITALS: BP 136/68
== END 2018-03-19 12:05 | disposition home or self-care (01) ==
LOC: SURG 10:18
PROVIDERS: ATTEND Internal Medicine Gastroenterology
DX: R10.11 Right upper quadrant pain (principal)

== ENCOUNTER 2018-06-18 10:39 | Outpatient (CLI) | payer OTHER ==
--- NOTE | 2018-06-19 08:53 | MAMMO ---
EXAM: Bilateral digital screening mammogram (2-D and 3-D) History: Screening Comparison: Bilateral mammogram 06/11/2017 Findings: MLO and CC views of bilateral breasts demonstrate scattered fibroglandular breast parenchy ma. There are no dominant masses, no suspicious microcalcifications and no architectural distortions . CAD was reviewed by the radiologist. Tomosynthesis was performed. Impression: Stable negative mammogram. Recommend followup routine screening mammography in 1 year. BIRADS 1, negative
== END 2018-06-18 10:40 | disposition home or self-care (01) ==
LOC: RAD 10:39
PROVIDERS: ATTEND Internal Medicine
DX: Z12.31 Encounter for screening mammogram for malignant neoplasm of breast (principal)

== ENCOUNTER 2018-07-29 09:07 | Outpatient (CLI) | payer OTHER ==
[2018-07-29 09:31] VITALS: BP 142/72; TEMP 98.8
[2018-07-29] MEDS: PROLIA SUBCUT STA (09:44)
== END 2018-07-29 09:08 | disposition home or self-care (01) ==
LOC: OPMED 09:07
PROVIDERS: ATTEND Internal Medicine
DX: M81.0 Age-related osteoporosis without current pathological fracture (principal)
CPT/HCPCS: 96372

== ENCOUNTER 2019-07-11 13:58 | Inpatient (IN) ==
[2019-07-11 14:28] VITALS: BMI 34.9
[2019-07-11] MEDS ORDERED: VISTARIL INJ IM PRN (14:33)
[2019-07-11] MEDS ORDERED: ATROPINE SULFATE PFS IVP PRN (14:33)
[2019-07-11] MEDS ORDERED: TYLENOL PO PRN (14:33)
[2019-07-11] MEDS ORDERED: NITROSTAT SL PRN (14:33)
[2019-07-11] MEDS ORDERED: ZOFRAN 4 MG/2 ML IVP STA (14:43)
[2019-07-11] MEDS ORDERED: TORADOL IVP STA (14:44)
[2019-07-11 14:48] LABS: HEMATOCRIT 37.5 % (37.0-47.0)
[2019-07-11] MEDS: DEXTROSE 5%-1/2NS IV SOLUTION 1,000 ML IV SCH (15:01)
[2019-07-11] MEDS: DECADRON 4 MG/ML SDV IM SCH (15:30)
[2019-07-11] MEDS ORDERED: NORCO 10-325 PO PRN (15:40)
[2019-07-11] MEDS ORDERED: ZANAFLEX PO PRN (15:40)
[2019-07-11] MEDS ORDERED: XANAX PO PRN (15:40)
[2019-07-11] MEDS ORDERED: PROLIA SUBCUT SCH (16:00)
[2019-07-11] MEDS ORDERED: BENTYL PO PRN (16:01)
[2019-07-11] MEDS ORDERED: FERROUS SULFATE PO SCH (17:00)
--- NOTE | 2019-07-11 18:46 | CT ---
EXAM: CT of the abdomen pelvis with contrast History: Abdominal pain. Comparison: CT abdomen pelvis 01/17/2018 Technique: Multiplanar CT images through the abdomen pelvis were obtained following administration o f IV contrast Findings: Lung bases are clear. No acute osseous abnormalities. Severe degenerative changes of the lumbar spine. Calcified granulomas are seen within the liver and spleen. No pancreatic masses. Adrenal glands are unremarkable. Stable simple cyst within the right kidney. No abdominal aortic aneurysm. No bowel obstruction. No bladder wall thickening. Atrophic uterus. Colonic diverticulosis. No free air. T here is inflammation within the right upper quadrant of the abdomen adjacent to the hepatic flexure. Impression: 1. Inflammation within the right upper quadrant adjacent to the hepatic flexure of the colon is prob ably due to diverticulitis. There is no free air and no abscess. 2. Colonic diverticulosis
--- NOTE | 2019-07-11 18:48 | DI ---
EXAM: Two views of the chest. History: Cough. Comparison: Chest radiograph 05/22/2017 Findings: Heart size is normal. No focal consolidation. No appreciable pleural fluid and no pneumo thorax. Atherosclerotic vascular calcifications. Calcified granulomas are seen within the thorax. Postsurgical changes of the left rotator cuff Impression: No acute cardiopulmonary process
[2019-07-11] MEDS ORDERED: TAMIFLU PO SCH (19:00)
[2019-07-11] MEDS: ZEBETA PO SCH (20:43)
[2019-07-11] MEDS: ASPIRIN EC PO SCH (20:43)
[2019-07-11] MEDS: CALCIUM 500 + VIT D 200 MG TABLET PO SCH (20:44)
[2019-07-11] MEDS: TAMIFLU PO SCH (20:44)
[2019-07-11] MEDS ORDERED: FERROUS SULFATE 27 MG PO SCH (21:00)
[2019-07-11] MEDS ORDERED: LANOXIN PO SCH (21:00)
[2019-07-11] MEDS ORDERED: CALCIUM CARBONATE 600 MG PO SCH (21:00)
[2019-07-12] MEDS: DEXTROSE 5%-1/2NS IV SOLUTION 1,000 ML IV SCH ×2 (02:49→15:02)
[2019-07-12 05:02] LABS: HEMATOCRIT 33.6 % (37.0-47.0)
[2019-07-12] MEDS: FERROUS SULFATE PO SCH (05:51)
[2019-07-12] MEDS: PROTONIX PO SCH (05:51)
[2019-07-12] MEDS: VITAMIN D PO SCH (08:57)
[2019-07-12] MEDS: ZESTRIL PO SCH (08:58)
[2019-07-12] MEDS: TAMIFLU PO SCH ×2 (08:58→20:13)
[2019-07-12] MEDS: DECADRON 4 MG/ML SDV IM SCH (08:58)
[2019-07-12] MEDS: MULTIVITAMIN TABLET PO SCH (08:58)
[2019-07-12] MEDS: CALCIUM 500 + VIT D 200 MG TABLET PO SCH ×2 (08:58→20:14)
[2019-07-12] MEDS: ASPIRIN EC PO SCH (20:14)
[2019-07-12] MEDS: ZEBETA PO SCH (20:14)
[2019-07-13] MEDS: DEXTROSE 5%-1/2NS IV SOLUTION 1,000 ML IV SCH ×2 (03:48→16:59)
[2019-07-13 05:12] LABS: HEMATOCRIT 33.1 % (37.0-47.0)
[2019-07-13] MEDS: FERROUS SULFATE PO SCH (05:52)
[2019-07-13] MEDS: PROTONIX PO SCH (05:52)
[2019-07-13] MEDS: MULTIVITAMIN TABLET PO SCH (08:32)
[2019-07-13] MEDS: ZESTRIL PO SCH (08:32)
[2019-07-13] MEDS: TAMIFLU PO SCH ×2 (08:32→21:23)
[2019-07-13] MEDS: VITAMIN D PO SCH (08:32)
[2019-07-13] MEDS: CALCIUM 500 + VIT D 200 MG TABLET PO SCH ×2 (08:32→21:23)
[2019-07-13] MEDS: DECADRON 4 MG/ML SDV IM SCH (08:33)
[2019-07-13] MEDS: ZEBETA PO SCH (21:23)
[2019-07-13] MEDS: ASPIRIN EC PO SCH (21:23)
[2019-07-14 05:32] VITALS: BP 154/64; TEMP 98
[2019-07-14 05:50] LABS: HEMATOCRIT 37.8 % (37.0-47.0)
[2019-07-14] MEDS: FERROUS SULFATE PO SCH (05:53)
[2019-07-14] MEDS: PROTONIX PO SCH (05:53)
[2019-07-14] MEDS: DEXTROSE 5%-1/2NS IV SOLUTION 1,000 ML IV SCH (07:00)
--- NOTE | 2019-07-14 08:19 | PCM.PROG ---
Attending Provider: ATTENDING PROVIDER: Dr. GAYATRI CASH DATE OF SERVICE: 07/14/19 SUBJECTIVE: This 78 year old /WHITE F was hospitalized 07/11/19 with Influenza a with Dehydration and bronchitis. The patient's condition has improved and she is ready to go home. Her appetite has improved. REVIEW OF SYSTEMS: CONSTITUTIONAL: No night sweats. No fatigue, malaise, lethargy. No fever or chills. HEENT: Eyes: No visual changes. No eye pain. No eye discharge. ENT: No runny nose. No epistaxis. No sinus pain. No odynophagia. No congestion. RESPIRATORY: No cough, no congestion. No hemoptysis. No shortness of breath. CARDIOVASCULAR: No angina symptoms. No CHF symptoms. No atypical chest pain for CAD. No palpitations. No orthopnea.. GASTROINTESTINAL: No abdominal pain. No nausea or vomiting. No diarrhea or constipation. No hematemesis. No hematochezia. Appetite better. GENITOURINARY: No urgency. No frequency. No dysuria. No hematuria. No obstructive symptoms. No discharge. No pain. No significant abnormal bleeding. MUSCULOSKELETAL: No musculoskeletal pain; no joint swelling. NEUROLOGICAL: Awake, alert, oriented to time, place and person. No headache. No neck pain. No syncope. No seizures. No dizziness. PSYCHIATRIC: Not anxious. No depression. No suicidal thoughts. No homicidal thoughts. SKIN: No rash. No lesions. No wounds. ENDOCRINE: No unexplained weight loss. No weight gain. HEMATOLOGIC/LYMPHATIC: No anemia. No purpura. No petechiae. No prolonged or e xcessive bleeding. No palpable lymph nodes. PHYSICAL EXAMINATION: GENERAL: The patient is awake, alert and oriented, lying in bed in no distress. VITAL SIGNS: Temperature 98.0 F, Pulse 43, Respiratory Rate 18, BP 154/64, Pulse Ox 97% HEENT: Head normocephalic, atraumatic. Eyes: Extraocular muscles are intact. Pupils are equal, round and reactive to light and accommodation. Ears: No lesions. Nose appeared normal. Throat: No exudate or erythema. NECK: Supple. No JVD, no carotid bruit. No lymphadenopathy or thyromegaly. LUNGS: Good air entry. No crepitations. Clear to auscultation. Percussion note normal. Chest symmetrical. HEART: S1, S2, no S3. No murmurs. No cyanosis or clubbing. No ascites. Pulses: Dorsalis pedis and posterior tibial pulses +1 to +2 both sides. ABDOMEN: Soft. Non-tender. Bowel sounds active. No CVA tenderness. No mass felt. EXTREMITIES: No edema. Full range of motion of all extremities, equal. NEUROLOGIC: No focal deficit. Cranial nerves II through XII are grossly intact. No headache, no double vision or headache. SKIN: Warm and dry. Intact. Turgor-normal. LYMPHATIC: No palpable lymph nodes/no lymphedema. MUSCULOSKELETAL: Normal joints with no swelling. Muscle tone is normal. LAB REVIEW: 07/14/19 05:02 07/14/19 05:02 07/14/19 05:02: Sodium 138.2, Potassium 4.27, Chloride 102.9, Carbon Dioxide 2 7.8, Anion Gap 11.77, BUN 12.1, Creatinine 0.72, Estimated GFR (MDRD) 78.00, BUN/Creatinine Ratio 16.80, Glucose 95.7, Calcium 8.65, Total Bilirubin 0.13 L, AST 30.9, ALT 19.5, Alkaline Phosphatase 41.6 L, Total Protein 6.29 L, Albumin 3.40 L, Globulin 2.89, Albumin/Globulin Ratio 1.17 07/14/19 05:02: WBC 10.02, RBC 4.57, Hgb 12.2, Hct 37.8, MCV 82.7, MCH 26.7 L, MCHC 32.3, RDW Coeff of Rut 14.5, Plt Count 256, Immature Gran % (Auto) 0.6, Neut % (Auto) 45.3, Lymph % (Auto) 43.3, [facility] % (Auto) 10.6 H, Eos % (Auto) 0.1, Baso % (Auto) 0.1, Immature Gran # (Auto) 0.1, Neut # (Auto) 4.5, Lymph # (Auto) 4.3 H, [facility] # (Auto) 1.1, Eos # (Auto) 0.0, Baso # (Auto) 0.0 ASSESSMENT: Please see below. 1. Influenza B with acute bronchitis and dehydration, resolved. PLAN: 1. Discharge home on Prednisone 20mg for 5 days. 2. The patient's Lanoxin was discontinued because of kaleb arrhythmia. 3. Tamiflu for total of 10 days. 4. The patient is going to be seen in the office in 5-7 days. CONDITION: Stable. Plan and coordination of the patient's care discussed in the presence of Senior Marketing Associate and nurse. SCRIBED BY: Darin GOFF scribed while in presence of service performed by Dr. GAYATRI CASH on 07/14/19 ([id number])
[2019-07-14] MEDS: VITAMIN D PO SCH (09:15)
[2019-07-14] MEDS: DECADRON 4 MG/ML SDV IM SCH (09:15)
[2019-07-14] MEDS: TAMIFLU PO SCH (09:16)
[2019-07-14] MEDS: ZESTRIL PO SCH (09:16)
[2019-07-14] MEDS: CALCIUM 500 + VIT D 200 MG TABLET PO SCH (09:16)
[2019-07-14] MEDS: MULTIVITAMIN TABLET PO SCH (09:16)
--- NOTE | 2019-07-14 10:44 | CM.DICTOOL ---
ADMISSION: 07/11/19 13:58 DISCHARGE: JULY 14, 2019 DATE OF SERVICE: 07/14/19 FINAL DIAGNOSIS: INFLUENZA B WITH ACUTE BRONCHITIS DEHYDRATION, RESOLVED HX: HYPERTENSION GERD DYSLIPIDEMIA HEART MURMUR CARDIAC TACHYARRHYTHMIA OSTEOARTHRITIS- KNEES/HIPS LUMBAR RADICULOPATHY HEMORRHOIDS GENERALIZED ANXIETY DISORDER BILATERAL CAROTID STENOSIS 50% NONSMOKER OBESITY PROCEDURES: COLONOSCOPY/ENDOSCOPY (DR. OKEEFE, 2011) MAMMOGRAM 01/23 TONSILLECTOMY CHOLECYSTECTOMY, 1999 RIGHT ULNAR FRACTURE/REPAIR (DR. HOLDEN, 2013) LAST VITALS Temp Pulse Resp BP Pulse Ox 98.0 F 43 L 18 154/64 H 97 07/14/19 05:29 07/14/19 05:29 07/14/19 05:29 07/14/19 05:29 07/14/19 05:29 TAKE THESE MEDICATIONS AT HOME Hydrocodone Bitart/Acetaminophen ([place] 10-325) 1 tab PO TID PRN PRN Reason: Pain Alprazolam (Xanax) 0.5 mg PO BID PRN PRN Reason: Anxiety Last Admin: 07/12/19 20:14 Dose: 0.5 mg Documented by: Aspirin (Aspirin Ec) 81 mg PO BEDTIME [facility] Last Admin: 07/13/19 21:23 Dose: 81 mg Documented by: Bisoprolol Fumarate (Zebeta) 5 mg PO BEDTIME [facility] Last Admin: 07/13/19 21:23 Dose: 5 mg Documented by: Calcium/Vitamin D (Calcium 500 + Vit D 200 Mg Tablet) 1 each PO BID [facility] Last Admin: 07/14/19 09:16 Dose: 1 each Documented by: Cholecalciferol (Vitamin D) 5,000 unit PO DAILY [facility] Last Admin: 07/14/19 09:15 Dose: 5,000 unit Documented by: Dicyclomine HCl (Bentyl) 10 mg PO BID PRN PRN Reason: ABDOMINAL PAIN Ferrous Sulfate (Ferrous Sulfate) 324 mg PO QDAC [facility] Last Admin: 07/14/19 05:53 Dose: 324 mg Documented by: Lisinopril (Zestril) 20 mg PO DAILY [facility] Last Admin: 07/14/19 09:16 Dose: 20 mg Documented by: Multivitamins (Multivitamin Tablet) 1 tab PO DAILY [facility] Last Admin: 07/14/19 09:16 Dose: 1 tab Documented by: Oseltamivir Phosphate (Tamiflu) 75 mg PO BID [facility] X 7 MORE DAYS ( 14 MORE DOSES) ----(NEW) Last Admin: 07/14/19 09:16 Dose: 75 mg Documented by: Pantoprazole Sodium (Protonix) 40 mg PO QDAC [facility] Last Admin: 07/14/19 05:53 Dose: 40 mg Documented by: Tizanidine HCl (Zanaflex) 4 mg PO BID PRN PRN Reason: muscle/joint pain PREDNISONE PO 20 MG DAILY X 5 DAYS -------( NEW) LIPITOR 20 MG PO @ BEDTIME PROLIA 60 MG SQ EVERY 12 MONTHS, DUE JULY 29, 2019 ALLERGIES morphine Adverse Reaction (Verified 07/11/19 15:40) DISCONTINUED MEDICATIONS Digoxin (Lanoxin) NEW PRESCRIPTIONS: TAMIFLU 75 MG PO BID X 7 MORE DAYS ( 14 MORE DOSES ) PREDNISONE 20 MG PO DAILY X 5 DAYS SMOKING: NON- APPLICABLE DISEASE SPECIFIC EDUCATION: DEHYDRATION DIVERTICULOSIS AND DIVERTICULITIS ACUTE BRONCHITIS INFLUENZA LAB REVIEW: 07/14/19 05:02 07/14/19 05:02 07/14/19 05:02: Sodium 138.2, Potassium 4.27, Chloride 102.9, Carbon Dioxide 27.8, Anion Gap 11.77, BUN 12.1, Creatinine 0.72, Estimated GFR (MDRD) 78.00, BUN/Creatinine Ratio 16.80, Glucose 95.7, Calcium 8.65, Total Bilirubin 0.13 L, AST 30.9, ALT 19.5, Alkaline Phosphatase 41.6 L, Total Protein 6.29 L, Albumin 3.40 L, Globulin 2.89, Albumin/Globulin Ratio 1.17 07/14/19 05:02: WBC 10.02, RBC 4.57, Hgb 12.2, Hct 37.8, MCV 82.7, MCH 26.7 L, MCHC 32.3, RDW Coeff of Rut 14.5, Plt Count 256, Immature Gran % (Auto) 0.6, Neut % (Auto) 45.3, Lymph % (Auto) 43.3, [place] % (Auto) 10.6 H, Eos % (Auto) 0.1, Baso % (Auto) 0.1, Immature Gran # (Auto) 0.1, Neut # (Auto) 4.5, Lymph # (Auto) 4.3 H, Grant # (Auto) 1.1, Eos # (Auto) 0.0, Baso # (Auto) 0.0 PLAN: DISCHARGE HOME TODAY INDEPENDENTLY ACTIVITY: SLOWLY RESUME ACTIVITY , NO STRENUOUS ACTIVITY, DO GET UP THROUGHOUT THE DAY WITH FREQUENT REST PERIODS. STAY HOME UNTIL YOU SEE . DIET: LOW FAT, LOW CHOLESTEROL SEE DR. CASH/ILIA BALLESTEROS APRN IN THE OFFICE ON SUNDAY, JULY 21, 2019 @ 300 PM CODE STATUS: FULL CODE M[facility] FLORES REMAINS ALERT AND ORIENTED X 4. PLEASANT AND TALKATIVE. RESPIRATIONS EVEN AND UNLABORED. NO SPUTUM PRODUCTION. HAS REMAINED AFEBRILE. NO FURTHER ABD PAIN OR N/V. WAS A DIRECT ADMITT FROM MD OFFICE ON 07/11/2019 FOR DEHYDRATION, ABD PAIN, ACUTE BRONCHITIS AND TESTED + FOR INFLUENZA B. WAS STARTED ON IV FLUIDS, IM DECADRON AND TAMIFLU. LABS HAVE STABLIZED. SHE IS AMBULATORY ON HER OWN. SHE HAS A GOOD NUTRITIONAL AND FLUID PO INTAKE. CONTINENT OF BOWEL AND BLADDER. LAST BM 07/13/2019. MD ILIA SANTIAGO APRN
--- NOTE | 2019-07-15 09:10 | PN ---
DATE OF SERVICE: 07/12/2019 SUBJECTIVE: 78 year old white female hospitalized with Influenza A. The patient had abdominal pain with some diarrhea with dehydration. Also had acute bronchitis. The duration of the symptoms was several days. The patient says that she is feeling better with IV fluids. REVIEW OF SYSTEMS: CONSTITUTIONAL: No night sweats. No fatigue, malaise, lethargy. No fever or chills. HEENT: Eyes: No visual changes. No eye pain. No eye discharge. ENT: No runny nose. No epistaxis. No sinus pain. No sore throat. No odynophagia. No congestion. RESPIRATORY: Mild cough with congestion. No hemoptysis. No shortness of breath. CARDIOVASCULAR: No angina symptoms. No CHF symptoms. No atypical chest pain for CAD. No palpitations. No PND. No orthopnea. GASTROINTESTINAL: No abdominal pain. No nausea or vomiting. No diarrhea or constipation. No hematemesis. No hematochezia. GENITOURINARY: No urgency. No frequency. No dysuria. No hematuria. No obstructive symptoms. No discharge. No pain. No significant abnormal bleeding. MUSCULOSKELETAL: No musculoskeletal pain; no joint swelling. NEUROLOGICAL: No headache. No neck pain. No syncope. No seizures. No dizziness. PSYCHIATRIC: Not anxious. No depression. No suicidal thoughts. No homicidal thoughts. SKIN: No rash. No lesions. No wounds. ENDOCRINE: No unexplained weight loss. No weight gain. HEMATOLOGIC/LYMPHATIC: No anemia. No purpura. No petechiae. No prolonged or excessive bleeding. No palpable lymph nodes. PHYSICAL EXAMINATION: VITAL SIGNS: Temperature 97.4, pulse 46, respiratory rate 18, blood pressure 130/60 and pulse ox 96%. HEENT: Head normocephalic, atraumatic. Eyes: Extraocular muscles are intact. Pupils are equal, round and reactive to light and accommodation. Ears: No lesions. Nose appeared normal. Throat: No exudate or erythema. NECK: Supple. No JVD, no carotid bruit. No lymphadenopathy or thyromegaly. LUNGS: Decreased breath sounds but clear to auscultation. Percussion note normal. Chest symmetrical. HEART: S1, S2, no S3. No murmurs. No cyanosis or clubbing. No ascites. Pulses: Dorsalis pedis and posterior tibial pulses +1 to +2 bilaterally. ABDOMEN: Soft. Nontender. Bowel sounds active. No CVA tenderness. No mass felt. EXTREMITIES: No edema. Full range of motion of all extremities, equal. NEUROLOGIC: No focal deficit. Cranial nerves II through XII are grossly intact. No headache, no double vision or headache. SKIN: Not dry. Intact. Turgor - normal. LYMPHATIC: No palpable lymph nodes/no lymphedema. MUSCULOSKELETAL: Normal joints with no swelling. Muscle tone is normal. LABS: Hgb 10.8, hct 33, WBC 3,700 normal differential, creatinine 0.9, BUN 16, potassium 4.2 ASSESSMENT: 1. Dehydration seems to be resolving 2. Abdominal pain under control 3. Acute bronchitis is being treated with antibiotics and steroids 4. Influenza A overall has less symptoms PLAN: 1. Discontinue Lanoxin The new problem is bradycardia. The patient had pulse rate of 42 to 50 per minute. The patient is also on Zebeta. The patient has history of SVT. Will monitor the rhythm, CONDITION: Stable TIME SPENT: More than 30 minutes. Plan and coordination of the patient's care discussed in the presence of nurse. CALIXTO
--- NOTE | 2019-07-15 10:22 | HP ---
DATE OF SERVICE: 07/11/2019 REASON FOR HOSPITALIZATION/HISTORY OF PRESENT ILLNESS: As usual right upper quadrant /Right flank pain. EGD and colonoscopy OK with Dr. Winn 2017. Also complains of cough and congestion with whitish sputum times 7 days. Poor appetite, lost 5 pounds in three weeks. No symptoms of CHF/CAD. PAST MEDICAL HISTORY: History of diverticulitis History of UTI History of SVT TRINITY Fatigue/depression IBS Status post heart cath Dr. Kang LVH/Hypertension Leucocytosis borderline chronic, Dr. Case Bilateral sciatica Osteoarthritis, knee Dr. Connor DJD spine Left total knee replacement Dr. Connor Dyslipidemia Carotid stenosis Dr. Schaefer Osteoporosis Dexa Scan Prolia 01/28/19 PAST SURGICAL HISTORY: Left shoulder Left knee Gallbladder Tonsils and adenoids REVIEW OF SYSTEMS: CONSTITUTIONAL: No fever, Fatigue. HEENT: No sinus drainage, no sore throat. RESPIRATORY: Cough, no congestion. CARDIOVASCULAR: No atypical chest pain for coronary artery disease. No angina, CHF symptoms, palpitations or shortness of breath. GASTROINTESTINAL: No melena or abdominal pain. No GERD. GENITOURINARY: No hematuria, no prostatism, no polyuria. CHEMICAL COMPOUNDER: No blackout, no dizziness, no headache, no double vision. MUSCULOSKELETAL: No osteoarthritis pain, no joint swelling. ENDOCRINE: Weight loss 5 pounds in 2 weeks, no weight gain. SKIN: Not dry, no rash. PSYCHIATRIC: Anxious, no depression, no suicidal thoughts, no homicidal thoughts. SOCIAL HISTORY: Marital Status: . Retired. Alcohol Usage: No. Tobacco Usage: No. FAMILY HISTORY: Father COPD Mother CAD TIA Sister breast cancer MEDICATIONS: Xanax 0.5mg PO BID Lexapro 10mg PO daily Lipitor 20mg PO daily Zestril 20mg PO daily Prolia 60mg Q 6 months last 01/30 Zanaflex 4mg BID [place] 10-325mg TID Vitamin D, Calcium, FE daily Digoxin 125mcg daily Bentyl 10mg BID Zebeta 5mg 1/2 daily Protonix 40mg Po daily Aspirin 81mg PO daily Fish oil 1000mg Po daily Flagyl 500mg TID for 7 days and Zofran 4mg TID PRN (06/02/2019) ALLERGIES: Morphine PHYSICAL EXAMINATION: V/S: Pulse 54, blood pressure 126/70, temperature 98.4, oxygen saturation 98%. BMI 34.2, Height 5'2, weight 186.8. GENERAL APPEARANCE: Oriented times three. Dry Skin. HEENT: Normal. NECK: No JVP, no bruits. RESPIRATORY: Lungs are clear. CARDIOVASCULAR: S1, S2, no S3, no murmur. No cyanosis, clubbing. No ascites. GI/ABDOMEN: No tenderness. Bowel sounds are active. EXTREMITIES: edema, pulses +1, equal. CHEMICAL COMPOUNDER: Deep tendon reflexes, sensory, motor and gait all normal. RECTAL:: EGD 03/31 repeat 10 years, 2017 Dr. Winn colonoscopy/PELVIC: Advised yearly. Mammogram 07/02-07/03 [facility]. Bone density 07/01 [facility]. ASSESSMENT: 1. Flu Syndrome 2. Dehydration 3. Abdominal pain-flank/right upper quadrant 4. Acute bronchitis 5. Shortness of breath 6. History of diverticulitis 7. History of UTI 8. History of SVT 9. TRINITY 10. Fatigue/depression 11.IBS 12.Status post heart cath Dr. Kang 13.LVH/Hypertension 14.Leucocytosis borderline chronic, Dr. Case 15.Bilateral sciatica 16.Osteoarthritis, knee Dr. Connor 17.DJD spine 18.Left total knee replacement Dr. Connor 19.Dyslipidemia 20.Carotid stenosis Dr. Schaefer 21.Osteoporosis Dexa Scan Prolia 01/28/19 PLAN: 1. Admit with routine telemetry orders 2. Rapid Flu A and B 3. 1000 CC D5 1/2 normal saline 12 hourly 4. 1cc Decadron IM today and Q AM 5. CT scan of abdomen and pelvis with contrast 6. Lanoxin level 7. Continue all home medications-Hold Lipitor 8. Zofran 4mg IV now times one dose 9. Toradol 30mg IV now times one dose 10.Diet- soft, low fat TIME SPENT: More than 70 minutes. MTDD
--- NOTE | 2019-07-15 10:31 | PN ---
DATE OF SERVICE: 07/13/2019 SUBJECTIVE: 78 year old white female hospitalized with Influenza A. The patient had dehydration with abdominal discomfort with acute bronchitis. The patient's condition is stabilizing. Dehydration has resolved. Appetite is improving. Still has tired feeling. Bronchitis symptoms are better. REVIEW OF SYSTEMS: CONSTITUTIONAL: No night sweats. Fatigue and tired feeling. No fever or chills. HEENT: Eyes: No visual changes. No eye pain. No eye discharge. ENT: No runny nose. No epistaxis. No sinus pain. No sore throat. No odynophagia. No congestion. RESPIRATORY: Mild cough and congestion. No hemoptysis. No shortness of breath. CARDIOVASCULAR: No angina symptoms. No CHF symptoms. No atypical chest pain for CAD. No palpitations. No PND. No orthopnea. GASTROINTESTINAL: No abdominal pain. No nausea or vomiting. No diarrhea or constipation. No hematemesis. No hematochezia. GENITOURINARY: No urgency. No frequency. No dysuria. No hematuria. No obstructive symptoms. No discharge. No pain. No significant abnormal bleeding. MUSCULOSKELETAL: No musculoskeletal pain; no joint swelling. NEUROLOGICAL: No headache. No neck pain. No syncope. No seizures. No dizziness. PSYCHIATRIC: Not anxious. No depression. No suicidal thoughts. No homicidal thoughts. SKIN: No rash. No lesions. No wounds. ENDOCRINE: No unexplained weight loss. No weight gain. HEMATOLOGIC/LYMPHATIC: No anemia. No purpura. No petechiae. No prolonged or excessive bleeding. No palpable lymph nodes. PHYSICAL EXAMINATION: VITAL SIGNS: Temperature 97.7, pulse 50, respiratory rate 18, blood pressure 122/66 and pulse ox 94%. HEENT: Head normocephalic, atraumatic. Eyes: Extraocular muscles are intact. Pupils are equal, round and reactive to light and accommodation. Ears: No lesions. Nose appeared normal. Throat: No exudate or erythema. NECK: Supple. No JVD, no carotid bruit. No lymphadenopathy or thyromegaly. LUNGS:Decreased breath sounds but clear to auscultation. Percussion note normal. Chest symmetrical. HEART: S1, S2, no S3. No murmurs. No cyanosis or clubbing. No ascites. Pulses: Dorsalis pedis and posterior tibial pulses +1 to +2 bilaterally. ABDOMEN: Soft. Nontender. Bowel sounds active. No CVA tenderness. No mass felt. EXTREMITIES: No edema. Full range of motion of all extremities, equal. NEUROLOGIC: No focal deficit. Cranial nerves II through XII are grossly intact. No headache, no double vision or headache. SKIN: Not dry. Intact. Turgor - normal. LYMPHATIC: No palpable lymph nodes/no lymphedema. MUSCULOSKELETAL: Normal joints with no swelling. Muscle tone is normal. LABS: hgb 10.8, hct 33, WBC 7,800 normal differential,creatinine 0.7, BUN 13, potassium 4.1 ASSESSMENT: 1. Influenza A with dehydration, abdominal and bronchitis seems to be improving. PLAN: 1. Continue steroids, antibiotics and NEBS 2. Encourage the patient to eat 3. Discontinue IV fluids TIME SPENT: More than 30 minutes. Plan and coordination of the patient's care discussed in the presence of nurse. CALIXTO
--- NOTE | 2019-07-16 11:45 | DS ---
DATE OF SERVICE: 07/14/2019 FINAL DIAGNOSIS: INFLUENZA B WITH ACUTE BRONCHITIS DEHYDRATION, RESOLVED HISTORY OF: HYPERTENSION GERD DYSLIPIDEMIA HEART MURMUR CARDIAC TACHYARRHYTHMIA OSTEOARTHRITIS- KNEES/HIPS LUMBAR RADICULOPATHY HEMORRHOIDS GENERALIZED ANXIETY DISORDER BILATERAL CAROTID STENOSIS 50% NONSMOKER OBESITY PROCEDURES: COLONOSCOPY/ENDOSCOPY (DR. OKEEFE, 2011) MAMMOGRAM 01/23 TONSILLECTOMY CHOLECYSTECTOMY, 1999 RIGHT ULNAR FRACTURE/REPAIR (DR. HOLDEN, 2013) LAST VITALS: Temp Pulse Resp BP Pulse Ox 98.0 F 43 L 18 154/64 H 97 07/14/19 05:29 07/14/19 05:29 07/14/19 05:29 07/14/19 05:29 07/14/19 05:29 DISCHARGE INSTRUCTIONS: DISCHARGE HOME TODAY INDEPENDENTLY. SEE DR. CASH/ILIA JONES APRN IN THE OFFICE ON SUNDAY, JULY 21, 2019 @ 300 PM. STAY HOME UNTIL YOU SEE MD. CODE STATUS: FULL CODE. TAKE THESE MEDICATIONS AT HOME: Hydrocodone Bitart/Acetaminophen ([place] 10-325) 1 tab PO TID PRN PRN Reason: Pain Alprazolam (Xanax) 0.5 mg PO BID PRN PRN Reason: Anxiety Last Admin: 07/12/19 20:14 Dose: 0.5 mg Documented by: Aspirin (Aspirin Ec) 81 mg PO BEDTIME [facility] Last Admin: 07/13/19 21:23 Dose: 81 mg Documented by: Bisoprolol Fumarate (Zebeta) 5 mg PO BEDTIME [facility] Last Admin: 07/13/19 21:23 Dose: 5 mg Documented by: Calcium/Vitamin D (Calcium 500 + Vit D 200 Mg Tablet) 1 each PO BID [facility] Last Admin: 07/14/19 09:16 Dose: 1 each Documented by: Cholecalciferol (Vitamin D) 5,000 unit PO DAILY [facility] Last Admin: 07/14/19 09:15 Dose: 5,000 unit Documented by: Dicyclomine HCl (Bentyl) 10 mg PO BID PRN PRN Reason: ABDOMINAL PAIN Ferrous Sulfate (Ferrous Sulfate) 324 mg PO QDAC [facility] Last Admin: 07/14/19 05:53 Dose: 324 mg Documented by: Lisinopril (Zestril) 20 mg PO DAILY [facility] Last Admin: 07/14/19 09:16 Dose: 20 mg Documented by: Multivitamins (Multivitamin Tablet) 1 tab PO DAILY [facility] Last Admin: 07/14/19 09:16 Dose: 1 tab Documented by: Oseltamivir Phosphate (Tamiflu) 75 mg PO BID REGGIE X 7 MORE DAYS ( 14 MORE DOSES) ----(NEW) Last Admin: 07/14/19 09:16 Dose: 75 mg Documented by: Pantoprazole Sodium (Protonix) 40 mg PO QDAC [facility] Last Admin: 07/14/19 05:53 Dose: 40 mg Documented by: Tizanidine HCl (Zanaflex) 4 mg PO BID PRN PRN Reason: muscle/joint pain PREDNISONE PO 20 MG DAILY X 5 DAYS -------( NEW) LIPITOR 20 MG PO @ BEDTIME PROLIA 60 MG SQ EVERY 12 MONTHS, DUE JULY 29, 2019 ALLERGIES: morphine Adverse Reaction (Verified 07/11/19 15:40) DISCONTINUED MEDICATIONS: Digoxin (Lanoxin) NEW PRESCRIPTIONS: TAMIFLU 75 MG PO BID X 7 MORE DAYS ( 14 MORE DOSES ) PREDNISONE 20 MG PO DAILY X 5 DAYS SMOKING: NON- APPLICABLE DISEASE SPECIFIC EDUCATION: DEHYDRATION DIVERTICULOSIS AND DIVERTICULITIS ACUTE BRONCHITIS INFLUENZA LAB REVIEW: 07/14/19 05:02 07/14/19 05:02 07/14/19 05:02: Sodium 138.2, Potassium 4.27, Chloride 102.9, Carbon Dioxide 27.8, Anion Gap 11.77, BUN 12.1, Creatinine 0.72, Estimated GFR (MDRD) 78.00, BUN/Creatinine Ratio 16.80, Glucose 95.7, Calcium 8.65, Total Bilirubin 0.13 L, AST 30.9, ALT 19.5, Alkaline Phosphatase 41.6 L, Total Protein 6.29 L, Albumin 3.40 L, Globulin 2.89, Albumin/Globulin Ratio 1.17 07/14/19 05:02: WBC 10.02, RBC 4.57, Hgb 12.2, Hct 37.8, MCV 82.7, MCH 26.7 L, MCHC 32.3, RDW Coeff of Rut 14.5, Plt Count 256, Immature Gran % (Auto) 0.6, Neut % (Auto) 45.3, Lymph % (Auto) 43.3, [place] % (Auto) 10.6 H, Eos % (Auto) 0.1, Baso % (Auto) 0.1, Immature Gran # (Auto) 0.1, Neut # (Auto) 4.5, Lymph # (Auto) 4.3 H, [place] # (Auto) 1.1, Eos # (Auto) 0.0, Baso # (Auto) 0.0 ACTIVITY: SLOWLY RESUME ACTIVITY , NO STRENUOUS ACTIVITY, DO GET UP THROUGHOUT THE DAY WITH FREQUENT REST PERIODS. DIET: LOW FAT, LOW CHOLESTEROL HOSPITAL COURSE: 78 year old white female was hospitalized with Influenza A with abdominal pain, dehydration and acute bronchitis. While in the hospital was treated with steroids, NEBS treatment, Tamiflu and IV fluids. Her condition has improved. The bronchitis has resolved. The abdominal pain has subsided. Condition at the time of discharge is stable. She is up and about eating better. The wheezing is practically gone. No abdominal pain. Dehydration has resolved. Cardiovascular status is stable. The patient was discharged on Tamiflu and steroids. She is to be seen 5-7 days on followup. Advised to rest until then. CONDITION: Stable. TIME SPENT: More than 60 minutes. MTDD
--- NOTE | 2019-07-16 13:25 | PN ---
07/11/2019: Level 5 07/12/2019: Intermediate 07/13/2019: Intermediate 07/14/2019: D as in discharge MTDD
--- NOTE | 2019-07-17 10:56 | HOLTER ---
PATIENT INFORMATION AND COMMENTS Attending Physician: DR. GAYATRI CASH Indications: DEHYDRATION, ACUTE BRONCHITIS, ABDOMINAL PAIN __ Patient Medications: NORCO, XANAX, ASA, ZEBETA, LISINOPRIL, ZANAFLEX __ Pre-procedure Summary: Protocol: Standard Heart Rate Started: 07/13/2019 Minimum: 37 BPM Weight: 191 LBS Ended: 07/14/2019 Maximum: 104 BPM Height: 62" Duration: 22 HRS Average: 49 BPM _ INTERPRETATIONS/OBSERVATIONS: 1. BASIC RHYTHM: SINUS BRADYCARDIA, RATE 37 BPM TO 100 BPM, AVERAGE RATE 50 BPM 2. INFREQUENT PVC'S/ FEW COUPLETS NOTED 3. PAC'S--INFREQUENT--FEW SHORT RUNS OF SVT, 4 TO [address] NO [address]-T WAVE CHANGES FROM BASELINE 5. ACTIVITY LOG NOT AVAILABLE MTDD
== END 2019-07-14 11:55 | disposition home or self-care (01) | DRG 310 ==
LOC: MEDSURG B 13:58
PROVIDERS: ADMIT Internal Medicine; ATTEND Internal Medicine